=== PATIENT | male | born 1965 | race Caucasian/White ===

== ENCOUNTER 2016-07-13 13:40 | Emergency (ER) | payer SELFPAY ==
[~2016-07-13] VITALS: Ht 175.3 cm; Wt 106.0 kg
[2016-07-13 13:46] VITALS: BP 172/115; PULSE 96; RESP 16; TEMP 98.5; O2SAT 97
[2016-07-13 15:29] VITALS: BP 199/112; PULSE 92; RESP 18; O2SAT 97
[2016-07-13] MEDS ORDERED: cloNIDine HCL 0.1 MG TAB PO ONE (15:30)
[2016-07-13] MEDS ORDERED: LISINOPRIL 20 MG TAB PO ONE (15:30)
[2016-07-13] MEDS ORDERED: LISI-515 PO (15:37)
--- NOTE | 2016-07-13 15:38 | PD ---
HPI Chief Complaint: Hypertension Time Seen by Provider: 15:20 Travel History International Travel<30 days: No Contact w/Intl Traveler<30days: No Traveled to known affect area: No History of Present Illness HPI This 51-year-old male presents with complaint of high blood pressure. He has had a history of hypertension and has been on medications in the past. He has not been on any medication for the past year or so. He does not suffer from headaches. He has no history of heart disease. He has no history of stroke. He stopped smoking 11-12 years ago. A friend of his has been checking his blood pressure periodically and usually gets readings about 200/100. PFSH Past Medical History High Cholesterol: Yes Diminished Hearing: No Diverticulitis: Yes Hypertension: Yes Influenza Vaccination: No Past Surgical History Surgical History: No Previous Surgery Eye Surgery: Yes (LAZY EYE A CHILD) Social History Alcohol Use: Yes ("COUPLE TIMES PER MONTH") Tobacco Use: No Substance Use: Yes (marijuana) Allergies-Medications (Allergen,Severity, Reaction): Coded Allergies: No Known Allergies (Unverified , 07/13/16) Reported Meds & Prescriptions Reported Meds & Active Scripts Active Lisinopril 20 Mg Tab 20 Mg PO DAILY Review of Systems General / Constitutional: No: Fever, Chills Eyes: No: Diploplia, Blurred Vision HENT: No: Headaches, Vertigo Cardiovascular: No: Chest Pain or Discomfort, Palpitations Respiratory: No: Cough, Shortness of Breath Gastrointestinal: No: Nausea, Vomiting Genitourinary: No: Urgency, Frequency Musculoskeletal: No: Myalgias, Arthralgias Skin: No Rash Neurologic: No: Weakness Hematologic/Lymphatic: No: Easy Bruising Physical Exam Narrative GENERAL: Well-developed male SKIN: Warm and dry. HEAD: Atraumatic. Normocephalic. EYES: Pupils equal and round. No scleral icterus. No injection or drainage. ENT: No nasal bleeding or discharge. Mucous membranes pink and moist. NECK: Trachea midline. No JVD. CARDIOVASCULAR: Regular rate and rhythm. No murmur appreciated. RESPIRATORY: No accessory muscle use. Clear to auscultation. Breath sounds equal bilaterally. GASTROINTESTINAL: Abdomen soft, non-tender, nondistended. Hepatic and splenic margins not palpable. MUSCULOSKELETAL: No obvious deformities. No clubbing. No cyanosis. No edema. NEUROLOGICAL: Awake and alert. No obvious cranial nerve deficits. Motor grossly within normal limits. Normal speech. PSYCHIATRIC: Appropriate mood and affect; insight and judgment normal. Data Data Last Documented VS Vital Signs Date Time Temp Pulse Resp B/P Pulse Ox O2 Delivery O2 Flow Rate FiO2 07/13/16 15:29 92 18 199/112 97 Room Air 07/13/16 13:46 98.5 Orders Lisinopril (Prinivil) (07/13/16 15:30) Clonidine (Catapres) (07/13/16 15:30) Complete Blood Count With Diff (07/13/16 15:31) Basic Metabolic Panel (Bmp) (07/13/16 15:31) MDM Medical Decision Making Medical Screen Exam Complete: Yes Emergency Medical Condition: Yes Medical Record Reviewed: Yes Differential Diagnosis Differential includes hypertension Narrative Course This gentleman has hypertension which is asymptomatic. It is quite elevated however and I will initiate treatment I will start him on lisinopril 20 mg daily with instructions that he needs to follow up with a primary care physician. Diagnosis Primary Impression: Hypertension Qualified Code: I10 - Essential hypertension Scripts Lisinopril 20 Mg Tab20 Mg PO DAILY #30 TAB Ref 0 Prov:Morris William MD 07/13/16 Disposition: 01 DISCHARGE HOME Condition: Stable Morris William MD Jul 13, 2016 15:38
[2016-07-13 16:05] VITALS: BP 184/101; PULSE 72; RESP 18; O2SAT 97
[2016-07-13 16:17] LABS: AUTOMATED NEUTROPHIL # 7.2 TH/MM3 (1.8-7.7); BASOPHIL # 0.3 TH/MM3 (0-0.2); BASOPHIL % 2.7 % (0.0-2.0); EOSINOPHIL # 0.2 TH/MM3 (0-0.4); EOSINOPHIL % 1.6 % (0.0-4.0); HEMATOCRIT 45.2 % (39.0-51.0); HEMO FLAGS DIFF FINAL; LYMPH % 26.3 % (9.0-44.0); MEAN CELL VOLUME 94.1 FL (80.0-100.0); MEAN CORPUSCULAR HEMOGLOBIN 30.3 PG (27.0-34.0); MEAN CORPUSCULAR HGB CONC 32.2 % (32.0-36.0); MONO % 6.4 % (0.0-8.0); PLATELET COUNT 232 TH/MM3 (150-450); RED CELL DISTRIBUTION WIDTH 12.3 % (11.6-17.2); WHITE BLOOD COUNT 11.4 TH/MM3 (4.0-11.0)
[2016-07-13 16:25] VITALS: BP 188/95; PULSE 74; RESP 18; O2SAT 97
[2016-07-13 16:32] LABS: BICARBONATE 25.4 MEQ/L (21.0-32.0)
[2016-07-13 16:45] VITALS: BP 173/101
--- NOTE | 2016-07-13 16:49 | PD ---
Data Data Last Documented VS Vital Signs Date Time Temp Pulse Resp B/P Pulse Ox O2 Delivery O2 Flow Rate FiO2 07/13/16 16:45 173/101 07/13/16 16:25 74 18 97 Room Air 07/13/16 13:46 98.5 Orders Lisinopril (Prinivil) (07/13/16 15:30) Clonidine (Catapres) (07/13/16 15:30) Complete Blood Count With Diff (07/13/16 15:31) Basic Metabolic Panel (Bmp) (07/13/16 15:31) Labs Laboratory Tests Test 07/13/16 07/13/16 15:54 16:07 Sodium Level 143 MEQ/L Potassium Level 4.0 MEQ/L Chloride Level 107 MEQ/L Carbon Dioxide Level 25.4 MEQ/L Anion Gap 11 MEQ/L Blood Urea Nitrogen 11 MG/DL Creatinine 0.90 MG/DL Estimat Glomerular Filtration 89 ML/MIN Rate Random Glucose 94 MG/DL Calcium Level 8.9 MG/DL White Blood Count 11.4 TH/MM3 Red Blood Count 4.80 MIL/MM3 Hemoglobin 14.6 GM/DL Hematocrit 45.2 % Mean Corpuscular Volume 94.1 FL Mean Corpuscular Hemoglobin 30.3 PG Mean Corpuscular Hemoglobin 32.2 % Concent Red Cell Distribution Width 12.3 % Platelet Count 232 TH/MM3 Mean Platelet Volume 8.6 FL Neutrophils (%) (Auto) 63.0 % Lymphocytes (%) (Auto) 26.3 % Monocytes (%) (Auto) 6.4 % Eosinophils (%) (Auto) 1.6 % Basophils (%) (Auto) 2.7 % Neutrophils # (Auto) 7.2 TH/MM3 Lymphocytes # (Auto) 3.0 TH/MM3 Monocytes # (Auto) 0.7 TH/MM3 Eosinophils # (Auto) 0.2 TH/MM3 Basophils # (Auto) 0.3 TH/MM3 CBC Comment DIFF FINAL Differential Comment MDM Supervised Visit with MIMI: No Narrative Course The patient was initially evaluated by the previous provider and signed out to me at the beginning of my shift pending labs and disposition. See his note for further details. Briefly this is a 51-year-old male with history of hypertension who has been off of his antihypertensive medications for a while, here for a prescription to be restarted on these medications. He states that because today is the first his insurance has kicked in. He is completely asymptomatic. No chest pain or dyspnea. No headache. No paresthesias or motor deficits. No visual disturbances. Initial blood pressure here in the emergency department was 199/ 112. The patient was given clonidine and lisinopril with improvement in blood pressure to 170/100. CBC and BMP are unremarkable. The patient was made aware of all findings. He states he is going to make an appointment with a primary care physician. He was informed on when to return to the emergency department. He verbalizes understanding and agreement with plan. Diagnosis Primary Impression: Hypertension Qualified Code: I10 - Essential hypertension Referrals: Primary Care Physician 3 days Additional Instruction: Follow-up with a primary care physician this week. Return to the emergency department for worsening symptoms or any other concerns. Scripts Lisinopril 20 Mg Tab20 Mg PO DAILY #30 TAB Ref 0 Prov:Morris William MD 07/13/16 Disposition: 01 DISCHARGE HOME Condition: Stable Kevin Torres MD Jul 13, 2016 16:49
== END 2016-07-13 17:16 | disposition home or self-care (01) ==
LOC: PHED 13:40
DX: I10 Essential (primary) hypertension (principal); E78.00 Pure hypercholesterolemia, unspecified
CPT/HCPCS: 80048; 85025; 99283